=== PATIENT | male | born 1970 | race Two or more races ===

== ENCOUNTER → 2016-07-14 | Outpatient (CLI) | payer MEDICAID ==
[~2016-07-14] MED LIST: LIDOCAINE 1% 30 ML SDV ONE; NA BICARBONATE 50 MEQ/50 ML VIAL ONE
--- NOTE | 2016-07-14 16:44 | US ---
Ultrasound chest Indication: Evaluate for therapeutic thoracentesis. Technique: Grayscale imaging of the left and right chest. Findings: There is a large left thoracentesis. The fluid appears mildly complicated, but there are n o significant septations. The right pleural space is clear. Impression: Large left pleural effusion. After much discussion, the patient refused thoracentesis, s econdary to lack of sedation as he had a recent bad experience at an outside hospital. Patient is ref erred for Pleurx chest tube placement in 2 days. The above findings were discussed with Dr. Jose Enrique Del Toro, who agrees with the above plan.
== END ==
LOC: FIMAGING 13:37
PROVIDERS: ATTEND Internal Medicine Hematology & Oncology
DX: J90 Pleural effusion, not elsewhere classified (principal)

== ENCOUNTER → 2016-08-13 | Outpatient (CLI) | payer MEDICAID ==
--- NOTE | 2016-08-13 10:42 | DX ---
Chest, PA and Lateral History: Increasing cough, malignant pleural effusion, left chest tube, cholangiocarcinoma. Comparison: June 14, 2016 Findings: Bilateral miliary nodules of metastatic disease are increasing in size and likely number. T here is a left basilar chest tube with adjacent pleural fluid that is decreased since the prior exam. More focal consolidation at the lateral left base could represent evidence of a dominant lung or con fluent nodules, or atelectasis. There is possibly superimposed infiltrate at the left base. There is no right pleural effusion. No lytic or sclerotic bone lesions are identified. There are no compressio n abnormalities. Impression: Progressive metastatic disease with possible superimposed left lower lobe infiltrate. Results called to Dr. Abran Trinh, as requested.
== END ==
LOC: FIMAGING 09:57
PROVIDERS: ATTEND Family Medicine
DX: C22.1 Intrahepatic bile duct carcinoma (principal); C78.00 Secondary malignant neoplasm of unspecified lung; R05 Cough; Z97.8 Presence of other specified devices

== ENCOUNTER 2017-02-02 09:51 | Day surgery (SDC) | payer MEDICAID ==
[2017-02-02] MEDS ORDERED: NS 1,000 ML IV SCH (10:30)
[2017-02-02] MEDS ORDERED: fentaNYL 100 MCG/2 ML INJ ONE (11:22)
[2017-02-02] MEDS ORDERED: MIDAZOLAM 2 MG/2 ML VIAL ONE (11:22)
[2017-02-02] MEDS ORDERED: FLUMAZENIL 0.5 MG/5 ML MDV IVP ONE (11:23)
[2017-02-02] MEDS ORDERED: NALOXONE HCL 0.4 MG/ML INJ ONE (11:23)
[2017-02-02] MEDS ORDERED: ONDANSETRON 4 MG/2 ML VIAL IVP PRN (13:12)
[2017-02-02] MEDS ORDERED: oxyCODONE IR 5 MG TAB PO PRN (13:12)
[2017-02-02 13:15] VITALS: RESP 11
[2017-02-02 13:38] VITALS: BP 115/75; O2SAT 99
== END 2017-02-02 13:57 | disposition home or self-care (01) ==
LOC: FIMAGING 09:51
PROVIDERS: ATTEND Radiology Diagnostic Radiology
PROC: BF251ZZ Computerized Tomography (CT Scan) of Liver using Low Osmolar Contrast (ICD-10-PCS; principal; 2017-02-02 12:55)
PROC: 0FB03ZX Excision of Liver, Percutaneous Approach, Diagnostic (ICD-10-PCS; principal; 2017-02-02 12:55)
DX: C22.1 Intrahepatic bile duct carcinoma (principal); C78.02 Secondary malignant neoplasm of left lung; Z87.891 Personal history of nicotine dependence
CPT/HCPCS: J2250; J2310; J3010

== ENCOUNTER → 2017-02-19 | Outpatient (CLI) | payer MEDICAID | LOC: FIMAGING 14:51 | PROVIDERS: ATTEND Nurse Practitioner | DX: C78.02 Secondary malignant neoplasm of left lung (principal); C22.1 Intrahepatic bile duct carcinoma ==

== ENCOUNTER 2017-04-02 10:19 | Inpatient (IN) | payer MEDICAID ==
[2017-04-02] MEDS ORDERED: ACETAMINOPHEN 325 MG TAB PO PRN (12:33)
[2017-04-02] MEDS ORDERED: ONDANSETRON DISINTEGRATING 4 MG TAB PO PRN (12:33)
[2017-04-02] MEDS ORDERED: ONDANSETRON 4 MG/2 ML VIAL IVP PRN (12:33)
[2017-04-02] MEDS ORDERED: ALBUTEROL 60 PUFFS/8 GM MDI IH PRN (12:44)
[2017-04-02] MEDS ORDERED: clonazePAM 1 MG TAB PO PRN (12:44)
[2017-04-02] MEDS: NS 1,000 ML IV SCH ×2 (13:00→19:48)
[2017-04-02] MEDS: HYDROmorphONE/DILAUDID 1 MG/ML INJ IVP PRN ×2 (13:01→14:21)
[2017-04-02] MEDS ORDERED: NALOXONE HCL 0.4 MG/ML INJ IVP PRN (14:22)
[2017-04-02] MEDS ORDERED: HYDROmorphONE/DILAUDID 1 MG/ML INJ IVP ONE (14:22)
[2017-04-02] MEDS: HYDROmorphONE/DILAUDID 6 MG/30 ML PCA IV PRN (15:22)
[2017-04-02] MEDS: PREGABALIN 50 MG CAP PO SCH (15:32)
--- NOTE | 2017-04-02 16:43 | ASMTCMCOM ---
CM Note CM Note Notes: Pt admitted with metastatic cholangiocarcinoma. Pt stated on admission that he wants to use the with Dignity Act to end his life. DOUGH RAISER, Nelly from palliative team is working on this request. Nelly and this C/M met with pt and in room. Pt stated he is suffering greatly. , Nanci in tears stating that she has felt so alone and it has been hard for her and 9 y/o dtr to watch pt's suffering. Pt and have no family in area. Pt has a brother in [place] and he may be able to come stay them for a short while. Discussed the possibility of DC to hospice either at home or care center once symptoms under control. They would like to wait and see how pt resonds. C/M will continue to follow. Date Signed: 04/02/2017 04:42 PM Electronically Signed By:Kira Garcia LCSW
[2017-04-02] MEDS ORDERED: fentaNYL 12 MCG PATCH TD SCH (16:45)
--- NOTE | 2017-04-02 16:52 | PDPCPN ---
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 Jose Alejandro is not wanting any life prolonging measures and wants the with dignity act to alleviate his suffering. palliative care consulted for complex medical decision making. Met with Jose Alejandro and his Nanci at the bedside this afternoon. Jose Alejandro described he has no quality of life and is suffering. he wants his suffering to be done and to with dignity. his Nanci was tearful and described Jose Alejandro's decline and need for her to care for her almost 26/01 due to weakness. She is in support of his choice to focus only on comfort. We spent a long time in discussion about hospice care, comfort, and the right to . Jose Alejandro would prefer to be at home but does not want to be suffering at home and is hoping for some symptom management. 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 Social work involved and helping. - Ativan PRn Advanced Care Planning: Is patient decisional?: Yes Code Status: DNR POA: unsure who is MDPOA. Plan: Aggressive symptom management. Hospice consult here for continued outpatient care. Working on with dignity act with his PCP Dr Ureña who is willing to help with the process. Subjective: i'm in so much pain Objective: Social History: . Has a 8 year old daughter. Brother is coming from [place] soon. 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 Vital Signs Temp Pulse Resp BP Pulse Ox 36.4 C 68 16 114/72 96 04/02/17 15:51 04/02/17 15:51 04/02/17 15:51 04/02/17 15:51 04/02/17 15:51 Physical Exam - Physical Exam General Appearance: alert, mild distress Respiratory: No respiratory distress, No accessory muscle use Skin: normal color, warm/dry Extremities: No pedal edema Neuro/Psych: alert, oriented x 3 ICD10 Worksheet Patient Problems: Problems Problem Status Onset Palliative care encounter Acute - ICD10 Problem Qualifiers (1) Palliative care encounter
--- NOTE | 2017-04-02 18:14 | PDGENHP ---
History and Physical History and Physical: HISTORY AND PHYSICAL CC: Pain nausea vomiting and cough HISTORY: This patient who has a history of cholangiocarcinoma diagnosed earlier this year has had trials of chemotherapy which have not led to any control is his tumor and he has had recently diagnosed progression of disease. He and his tell me that for some time now he has had a very difficult to control cough and that he has enough constant coughing fits productive of very large amounts of thick sputum that is driving him crazy. He is somewhat short of breath with this as well. More recently he started to develop diffuse pains including headaches chest back abdomen and limb pains though nothing really focal but sounds like a bone pain that might readily be treatable with radiation. These pains have become quite severe. He is taking MS Contin 15 twice daily as well as some breakthrough short-acting narcotic and not getting any good control despite the fact that he feels these medicines are making him feel woozy and nauseous and sleepy. In addition he does have frequent nausea and vomiting that has become big problem just recently and is not able to keep food or fluid down very well and feels dehydrated. He and his tell me that they have been talking for some time about his possible options. He at this time does not want any more chemotherapy, and does not want any more significant diagnostic therapy nor would he consent to any therapeutic procedures including palliative procedures to try and reduce pain. He wants to trying be made as comfortable as he can. He also would like to have referral to a physician assisted program where he can explore the possibilities of being given a dose medication to and his misery. He says that he does not feel like he has any dignity with all of these bothersome symptoms and he is bothered by how uncomfortable his family is watching him go through this. The patient visited with Dr. Del Toro his oncologist today in clinic and was referred to the hospital for symptom control. Notably in addition to his cancer related symptoms the patient does have some chronic bilateral sciatica after 2 spine surgeries and the pain of this has become more severe recently despite ongoing use of Lyrica and his narcotic analgesics. He had at 1 point been on a higher dose of Lyrica but did not tolerate that very well. He is at 100 mg daily right now ROS: A comprehensive 10 system review revealed no fevers but he is losing weight. He has not had any bleeding or bruising. No other significant specific symptoms. PAST MEDICAL HISTORY: Cholangiocarcinoma, stage IV, progressive despite chemotherapy and without any really good prospects for other chemotherapy Ongoing pain of malignancy Chronic bilateral sciatica with previous history of 2 spine surgeries, lumbar FAMILY MEDICAL HISTORY: No particularly related family history to his above problems SOCIAL HISTORY: lives at home with his MEDICATIONS: The patients list has been reconciled by our clinical pharmacist in the EMR. I have reviewed the list and ordered appropriate medicines. Note that in addition to the prescription medicines listed by the pharmacist the patient has been taking some cannabis oil at home to trying treat his pain. He said initially that cannabis will was managing his pain somewhat but in the past month he does not find it at all helpful PHYSICAL EXAMINATION: Vital Signs: Stable without fever Examination: General: alert, oriented, good mentation, looks uncomfortable and is fairly anxious He has very frequent and pronounced coughing spells productive of large volumes of thick but clear sputum during our visit Skin: warm, dry, some jaundice, no rash HEENT: normal Neck: no mass or jvd Resps: relaxed Lungs: Very rhonchorous breath sounds Heart: regular, no murmur Abdomen: soft, nondistended, nontender, +BS, no mass Upper Extremities: normal Lower Extremities: no edema, warm No Bleeding or bruising Neurologic: normal speech/language, normal preparator, no focal weakness IV site: looks normal LABORATORY DATA: Notably his bilirubin which was 1.6 on March 13 is now at 19. Alkaline phosphatase is greater than 300 with AST of 90 both numbers approximately stable rest of chemistries unremarkable Normal white cell count and red cell counts ASSESSMENT: -uncontrolled pain, nausea, vomiting, and coughing spells with dyspnea due to metastatic cholangiocarcinoma -uncontrolled sciatica pain which is chronic for him after previous lumbar spine surgeries -the patient has a set great sense of a loss of dignity in his current situation , certainly feels very hopeless about his situation at this time, and is looking for a way to get out of the situation. He certainly would like any kind of help we can give him with symptom control at this time. He is also very interested though in the physician therapist's assistant dying option and is requesting that we make a referral for this -the patient does not have any interest at all at this time in any further diagnostic testing, procedures, or chemotherapy, and is requesting palliative care. I have reviewed the above with Dr. Jose Enrique Del Toro his oncologist by telephone today as well. At this time I do see room for improvement in the pain medication regimen that he has as well as the nausea treatment and treatments for his cough. Hopefully these will be successful with minimal side effects as we go along and this may make things a lot easier for him. In terms of the question of referral for physician assisted , at this moment the patient and his are resolution that is the direction they want to go. Dr. Del Toro is recommending strongly that we try and hold off on this, I believe largely because of the possibility that we may be able to relieve him of some of his symptoms with better treatment which med changes mind, but also for concerned that it may interfere with the palliative process. At this point there is no in this community who is performing physician therapist's assistant in unaware of and of all the physicians in [place] that I know of who do it there not taking referral from outside their own system including the [place] program. Best we do not have any but I can refer him to straight away at this time. Either way if he does end up with a referral it will take some time for that referral to occur and then the process that begins wants a referral is made includes a very long and thorough assessment such that there be plenty of time to begin palliative issues, so I am not currently worried about this issue interfering with the palliative process. Nonetheless it may be that we can control his symptoms and he will feel less desperate to move on with this physician assisted dining scenario. PLANS: -at this point will replace the MS Contin with fentanyl patch so that I know he is not vomiting his tablets up and will replace is breakthrough pain medicine with IV medicine that we can titrate up to the needed dosing and adjust for side effects. We can then work toward hopefully an oral regimen if we can get his vomiting controlled but he can always use fentanyl patch and Roxanol. -will use IV antiemetics at this time and again titrate to hopefully quickly get control is vomiting -cough suppressants and mucolytic 6 and if we need to we can use inhaled Mucomyst or other therapies for his productive cough -as his bilirubin has gone from 1.6-19 in a very short period of time, is very possible that he has some biliary obstruction. Theoretically this could be treated by stenting or other measure. At this time the patient has no interest in any such diagnostic testing or procedures as would be required, but would perhaps reassess once we get his symptoms better controlled and see if he is potentially more interested after that. This would all be of course very palliative but we want to go with the patient's wishes on them. -I have requested consultation with Pam Ng of the palliative care team and reviewed the case with her and she has seen the patient and will continue to follow -regarding the patient's request for referral to a physician at assisted , I am not aware of any physician group and I can actually make a referral to at this time but I will at least continue to look to see what options are available so that we can further advise the patient as we go along, see above >90 mins at bedside and care coordination I have reviewed the patient's case in detail with Dr. Jose Enrique Del Toro I have reviewed the patient's past medical records as part of this assessment, including
[2017-04-02] MEDS ORDERED: PROMETHAZINE HCL 25 MG/ML INJ IVP PRN (18:35)
[2017-04-02] MEDS: guaiFENesin 600 MG TAB.ER PO SCH (19:11)
[2017-04-02] MEDS ORDERED: morphINE SR 15 MG TAB PO SCH (21:00)
--- NOTE | 2017-04-02 21:38 | GCON ---
[f rep st] CONSULTATION REASON FOR CONSULTATION: Metastatic cholangiocarcinoma in need of palliative care. The patient is a very pleasant 47-year-old male with a diagnosis of metastatic cholangiocarcinoma diagnosed in June of 2016. At that time, he had a 3 cm mass in his liver as well as innumerable pulmonary nodules and a left pleural effusion. Biopsy of the lung nodule showed a poorly differentiated adenocarcinoma with immuno markers most consistent with an upper GI malignancy felt to be most consistent with a cholangiocarcinoma. He had a PleurX catheter placed at [facility]. He started treatment with cisplatin and gemcitabine, and the cisplatin was eventually changed to carboplatin due to improved tolerability. He initially had a partial response and then his scan after 5 cycles showed stable disease. He completed 7 cycles of [place] gemcitabine and restaging studies in January showed slight progression. The patient was felt to have progressive disease and was started on nivolumab approximately 2 weeks ago. He has been struggling with ongoing pain and low energy. He was seen in the office today by Dr. Del Toro and reported that he no longer wanted any therapy. He is interested in with Dignity and is requesting help in facilitating that. Today in the office, he was found to be newly jaundiced with a bilirubin of 19. Bilirubin was 1.6 on March 13. PAST MEDICAL HISTORY: Unremarkable. SOCIAL HISTORY: The patient lives in [place]. He is . REVIEW OF SYSTEMS: 10-point Review of Systems is unremarkable other than noted in HPI. PHYSICAL EXAM: GENERAL: He is very ill appearing, jaundiced and uncomfortable. He is currently receiving a Dilaudid TECHNICAL SUPPORT INTERNSHIP. VITAL SIGNS: Blood pressure 113/70, O2 saturation 96%. Respires 18. He is afebrile. HEENT: Pupils are equal. Sclerae are anicteric. ABDOMEN: Soft. Tender to palpation in the right upper quadrant. Normal bowel sounds. HEART: Regular rate. LUNGS : Clear. EXTREMITIES: No edema. LABORATORY DATA: White blood cell count 5.8, hematocrit 41, platelets 286. Sodium 133, creatinine 0.8, total bilirubin 19.3, AST 91, alk phos 337. IMPRESSION: This is a very unfortunate 47-year-old male with metastatic cholangiocarcinoma with lung and pleural metastases. The patient has progressed after a course of [place] and gemcitabine therapy. More recently, he was tried on an experimental treatment with nivolumab but is now requesting no further therapy. He has new marked hyperbilirubinemia. This could be due to some type of biliary obstruction versus progressive tumor. At this point, the patient is not interested in additional diagnostic tests and is asking for arrangements to be made for with Dignity. He states he has been suffering and he wants to with dignity. He no longer wants to suffer and does understand that the disease is terminal. He is more comfortable currently on the Dilaudid patient-controlled analgesia. Hospice consultation is being arranged. Reportedly his primary care physician, Dr. Ureña, has been helping to facilitate the process for him. We will continue to follow along with you. /[id number]/MODL MTDD
[2017-04-02] MEDS: LORazepam 2 MG/ML INJ IVP PRN (23:02)
[2017-04-03] MEDS: ZOLPIDEM TARTRATE 5 MG TAB PO PRN ×2 (01:25→20:45)
[2017-04-03] MEDS: NS 1,000 ML IV SCH ×4 (01:25→22:43)
[2017-04-03] MEDS: ENOXAPARIN 40 MG/0.4 ML SYR SC SCH (08:39)
[2017-04-03] MEDS: MULTIVITAMINS 1 EACH TAB PO SCH (08:39)
[2017-04-03] MEDS: oxyCODONE IR 5 MG TAB PO PRN (08:39)
[2017-04-03] MEDS: guaiFENesin 600 MG TAB.ER PO SCH ×2 (08:39→20:16)
[2017-04-03] MEDS: HYDROmorphONE/DILAUDID 6 MG/30 ML PCA IV PRN (11:31)
[2017-04-03] MEDS: PREGABALIN 50 MG CAP PO SCH (14:18)
[2017-04-03] MEDS: BENZONATATE 100 MG CAP PO PRN (14:19)
--- NOTE | 2017-04-03 15:52 | ASMTCMCOM ---
CM Note CM Note Notes: Met with pt this morning and he would like to meet with [facility] to discuss admission. Faxed referral to [facility]. They can meet with pt at 10:00 AM in room tomorrow. Pt's at work so pt will ask her tonight and make sure that time os okay with her. Pt is much more comfortable today. C/M to follow. Date Signed: 04/03/2017 03:51 PM Electronically Signed By:Kira Garcia LCSW
--- NOTE | 2017-04-03 16:06 | PDPCPN ---
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 Jose Alejandro is not wanting any life prolonging measures and wants the with dignity act to alleviate his suffering. palliative care consulted for complex medical decision making. Jose Alejandro stated he was feeling better today. His pain was much improved and the coughing was a little better. He has been mostly resting and sleeping. He also states he was able to eat some applesauce this morning without any nausea or vomiting which is a big improvement. We spoke with him about getting a hospice consult here with his present to continue to discuss how to support them both once he is ready to leave the hospital. He also inquired again about the with dignity act and we told him it is still in process but we understand this is still a wish he would like to pursue. 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 Social work involved and helping. - Ativan PRn Advanced Care Planning: Is patient decisional?: Yes Code Status: DNR POA: unsure who is MDPOA. Plan: Aggressive symptom management. Hospice consult tomorrow. Working on with dignity act with his PCP Dr Ureña who is willing to help with the process. Subjective: my pain is better. Objective: Vital Signs Temp Pulse Resp BP Pulse Ox 36.6 C 90 16 96/60 L 91 L 04/03/17 14:00 04/03/17 14:00 04/03/17 14:00 04/03/17 14:00 04/03/17 14:00 04/02/17 04/03/17 04/04/17 05:59 05:59 05:59 Intake Total 2331.4 Output Total 501 1175 Balance 1830.4 -1175 Physical Exam - Physical Exam General Appearance: alert, no apparent distress Respiratory: No respiratory distress, No accessory muscle use Skin: normal color, warm/dry Extremities: No pedal edema Neuro/Psych: alert, oriented x 3 ICD10 Worksheet Patient Problems: Problems Problem Status Onset Palliative care encounter Acute - ICD10 Problem Qualifiers (1) Palliative care encounter
--- NOTE | 2017-04-03 16:57 | HOSPPROG ---
Hospitalist Progress Note Assessment/Plan: DIAGNOSES: -uncontrolled pain, nausea, vomiting, and coughing spells with dyspnea due to metastatic cholangiocarcinoma -uncontrolled sciatica pain which is chronic for him after previous lumbar spine surgeries -the patient has a set great sense of a loss of dignity in his current situation , certainly feels very hopeless about his situation at this time, and is looking for a way to get out of the situation. He certainly would like any kind of help we can give him with symptom control at this time. He is also very interested though in the physician assistant chief engineer dying option and is requesting that we make a referral for this -the patient does not have any interest at all at this time in any further diagnostic testing, procedures, or chemotherapy, and is requesting palliative care. 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 His nausea and is improved but he still having significant nausea and has trouble eating. The cough is somewhat improved as well but still having cough. He confirms today that he still has no interest in further diagnostic or therapeutic procedures, and that he still does not feel that he has or could have a control and dignity that he wants over his life situation. He is very much wanting to continue working on titrating his symptom control here, and still wanting to move forward 1 possible with referral to a with dignity Clinic. OBJECTIVE Vitals reviewed: Stable without fever Exam: alert oriented skin warm dry color ok resps not labored lungs clear BSs heart regular abd soft nondistended nontender, bowel sounds present limbs warm, no edema iv site ok Objective: Vital Signs Temp Pulse Resp BP Pulse Ox 36.6 C 90 16 96/60 L 91 L 04/03/17 14:04/03/17 14:04/03/17 14:04/03/17 14:04/03/17 14:04/02/17 04/03/17 04/04/17 06:59 06:59 06:59 Intake Total 2331.4 Output Total 501 1175 Balance 1830.4 -1175 ICD10 Worksheet Patient Problems: Problems Problem Status Onset Palliative care encounter Acute
--- NOTE | 2017-04-03 18:14 | SOAPPROG ---
SOAP Progress Note Assessment/Plan: Assessment: Brief note. Pt sleeping comfortably - I did not wake him, but reviewed with Dr. Barnett, RN, and palliative care team. Symptom control improving. Hospice consultation scheduled for tomorrow. He would prefer being at home and is still investigating with Dignity option. 04/03/17 18:13 Objective: Vital Signs Temp Pulse Resp BP Pulse Ox 36.7 C 89 16 129/87 H 90 L 04/03/17 18:04 04/03/17 18:04 04/03/17 18:04 04/03/17 18:04 04/03/17 18:04 04/02/17 04/03/17 04/04/17 05:59 05:59 05:59 Intake Total 2331.4 Output Total 501 1175 Balance 1830.4 -1175 ICD10 Worksheet Patient Problems: Problems Problem Status Onset Palliative care encounter Acute
[2017-04-03] MEDS: guaiFENesin/CODEINE PHOS 10 ML UDCUP PO PRN (20:14)
[2017-04-04] MEDS: guaiFENesin/CODEINE PHOS 10 ML UDCUP PO PRN ×3 (04:03→20:25)
[2017-04-04] MEDS: NS 1,000 ML IV SCH ×3 (04:05→19:00)
[2017-04-04] MEDS: HYDROmorphONE/DILAUDID 6 MG/30 ML PCA IV PRN ×2 (05:10→13:26)
[2017-04-04] MEDS: ENOXAPARIN 40 MG/0.4 ML SYR SC SCH (09:03)
[2017-04-04] MEDS: MULTIVITAMINS 1 EACH TAB PO SCH (09:03)
[2017-04-04] MEDS: guaiFENesin 600 MG TAB.ER PO SCH ×2 (09:04→21:02)
--- NOTE | 2017-04-04 11:26 | HOSPPROG ---
Hospitalist Progress Note Assessment/Plan: DIAGNOSES: -uncontrolled pain, nausea, vomiting, and coughing spells with dyspnea due to metastatic cholangiocarcinoma -uncontrolled sciatica pain which is chronic for him after previous lumbar spine surgeries -the patient has a set great sense of a loss of dignity in his current situation , certainly feels very hopeless about his situation at this time, and is looking for a way to get out of the situation. He certainly would like any kind of help we can give him with symptom control at this time. He is also very interested though in the physician household personal assistant dying option and is requesting that we make a referral for this -the patient does not have any interest at all at this time in any further diagnostic testing, procedures, or chemotherapy, and is requesting palliative care. PLANS: continue titration / management of his symptoms Will increase dose of fentanyl patch today Will add scopolamine patch today Will increase his dose of Lyrica to 150 mg daily for his chronic sciatica He is hoping to trying go home with hospice care in 2 days on Thursday, at which time we will continue fentanyl patches and it sounds like the plan worked out with hospice will be to use narcotic by NAVY MATERIAL INSPECTOR pump as he goes home. SUBJECTIVE: Today he and his family met with hospice care from [facility] and they had a very good needing it sounds like he is very interested in working with them and will probably be taken home care with them when he goes home from this admission. Today again his pain is slightly better but still constantly present and requiring ongoing use of NAVY MATERIAL INSPECTOR. His nausea and is improved but he still having significant nausea and has trouble eating. The cough is somewhat improved as well but still having cough. He confirms today that he still has no interest in further diagnostic or therapeutic procedures, and that he still does not feel that he has or could have a control and dignity that he wants over his life situation. He is very much wanting to continue working on titrating his symptom control here, looking to go forward with hospice care possibly home in a couple of days, and still wanting to move forward 1 possible with referral to a [facility]. OBJECTIVE Vitals reviewed: Stable without fever Exam: alert oriented skin warm dry color ok resps not labored lungs clear BSs heart regular abd soft nondistended nontender, bowel sounds present limbs warm, no edema iv site ok Objective: Vital Signs Temp Pulse Resp BP Pulse Ox 36.6 C 79 18 125/82 H 93 04/04/17 10:00 04/04/17 10:00 04/04/17 10:00 04/04/17 10:00 04/04/17 10:00 04/03/17 04/04/17 04/05/17 06:59 06:59 06:59 Intake Total 2331.4 4388.4 Output Total 501 3725 475 Balance 1830.4 663.4 -475 ICD10 Worksheet Patient Problems: Problems Problem Status Onset Palliative care encounter Acute
[2017-04-04] MEDS ORDERED: SCOPOLAMINE HYDROBROMIDE 1 MG/3 DAYS PATCH TD SCH (11:30)
[2017-04-04] MEDS: fentaNYL 25 MCG PATCH TD SCH (11:47)
[2017-04-04] MEDS: PREGABALIN 50 MG CAP PO SCH (13:14)
--- NOTE | 2017-04-04 13:38 | SOAPPROG ---
SOAP Progress Note Assessment/Plan: E&M for cholangiocarcinoma * Cholangiocarcinoma: incurable disease and likely to take patient's life within 6 months. Patient has good understanding of his situation. I don't know local physician providing medical aid in dying. We can look into physicians outside area to see if they would be interested in seeing him but no guarantees. No further recs. Subjective: Primary complaint is pruritus. Going home with hospice on Thursday. Asking about medical aid in dying. Objective: Vital Signs Temp Pulse Resp BP Pulse Ox 36.7 C 81 14 123/79 H 95 04/04/17 11:39 04/04/17 11:39 04/04/17 11:39 04/04/17 11:39 04/04/17 11:39 04/03/17 04/04/17 04/05/17 05:59 05:59 05:59 Intake Total 2331.4 4388.4 Output Total 501 3725 875 Balance 1830.4 663.4 -875 Physical Exam - Physical Exam General Appearance: no apparent distress EENT: scleral icterus (R), scleral icterus (L) Abdomen: soft Skin: jaundice ICD10 Worksheet Patient Problems: Problems Problem Status Onset Palliative care encounter Acute
--- NOTE | 2017-04-04 14:19 | ASMTCMCOM ---
CM Note CM Note Notes: Jessie from [facility] hospice met with pt, his , his brother and sister today. Plan is for pt to DC Thursday in time to meet Jessie at his home at 3:00. Equipment will be delivered on Thursday between 8 and 12. Pt's brother and sister plan to stay for two weeks. Pt's asked for private duty list so she can hire help when family leaves. Jessie asked that transport be set up with [facility] on Thursday for 2:00 PM pickup. Their ph# is [phone]. Pt will nbeed a prescription for roxanol and attivan to be filled before DC home. C/M will follow, Date Signed: 04/04/2017 02:18 PM Electronically Signed By:Kira Garcia LCSW
[2017-04-05] MEDS: ZOLPIDEM TARTRATE 5 MG TAB PO PRN ×2 (00:07→22:43)
[2017-04-05] MEDS: HYDROmorphONE/DILAUDID 6 MG/30 ML PCA IV PRN (00:29)
[2017-04-05] MEDS: BENZONATATE 100 MG CAP PO PRN (01:02)
[2017-04-05] MEDS: NS 1,000 ML IV SCH ×3 (01:36→18:48)
[2017-04-05] MEDS: guaiFENesin/CODEINE PHOS 10 ML UDCUP PO PRN ×4 (04:27→22:41)
[2017-04-05] MEDS: ENOXAPARIN 40 MG/0.4 ML SYR SC SCH (08:23)
[2017-04-05] MEDS: guaiFENesin 600 MG TAB.ER PO SCH ×2 (08:23→21:28)
[2017-04-05] MEDS: MULTIVITAMINS 1 EACH TAB PO SCH (08:23)
[2017-04-05] MEDS: hydrOXYzine HCL 25 MG TAB PO SCH ×3 (11:44→23:19)
[2017-04-05] MEDS ORDERED: IOPAMIDOL (ISOVUE-300) 100 ML BTL ONE (14:22)
--- NOTE | 2017-04-05 14:49 | SOAPPROG ---
SOAP Progress Note Assessment/Plan: E&M for cholangiocarcinoma * Cholangiocarcinoma: incurable disease and likely to take patient's life within 6 months. Patient has good understanding of his situation and desires hospice. * Obstructive jaundice and pruritus: reasonable to see if a stent can provide some relief. MRCP today and will be evaluated by GI. If unable to do stent, I talked to him about placing an external drain. I explained the external drain is easier to place and less likely to obstruct down the road. Subjective: After speaking to his cousin? who is an oncologist, he is interested in a palliative stent. Pain mostly in abd and sciatica. Objective: Vital Signs Temp Pulse Resp BP Pulse Ox 36.5 C 74 14 112/71 94 04/05/17 13:43 04/05/17 13:43 04/05/17 13:43 04/05/17 13:43 04/05/17 13:43 04/04/17 04/05/17 04/06/17 05:59 05:59 05:59 Intake Total 4388.4 3240 Output Total 3725 1600 775 Balance 663.4 4092 -775 Physical Exam - Physical Exam General Appearance: no apparent distress EENT: scleral icterus (R), scleral icterus (L) Abdomen: soft, distended Skin: jaundice ICD10 Worksheet Patient Problems: Problems Problem Status Onset Palliative care encounter Acute
[2017-04-05] MEDS: PREGABALIN 50 MG CAP PO SCH (14:54)
[2017-04-05] MEDS: BENZONATATE 100 MG CAP PO SCH ×2 (14:54→21:28)
[2017-04-05] MEDS: clonazePAM 1 MG TAB PO SCH ×2 (15:00→21:28)
--- NOTE | 2017-04-05 16:03 | HOSPPROG ---
Hospitalist Progress Note Assessment/Plan: 47-year-old male with obstructive jaundice, pruritus, and cholangiocarcinoma and an incurable stage. He presents with obstructive jaundice. Patient is new to me today. -abdominal pain nausea and vomiting along with coughing spells and dyspnea. Abdominal pain is currently well controlled with a SHIFT SUPERVISOR FILM PROCESSING pump and we are controlling the coughing spells with Tessalon Perles along with Robitussin A-C. -jaundice: Secondary to obstructive lesion of the liver. I discussed this with the patient is his and his cousin an oncologist from [facility]. Though the cholangiocarcinoma is likely incurable per Oncology a note attempt to drain the biliary system is reasonable. -itching secondary to jaundice Atarax has been prescribed. Plan: MRCP of the abdomen to assess for possible stent placement. Gastroenterology has been consulted nerve discussed the case with Dr. monika peters on. He will be seen by Dr. Moncho Cerda to tomorrow. Case was discussed with both GI and Oncology. CT scans from our [facility] [place] will reviewed with Radiology. I reviewed all this information with the family his cousin the oncologist from [facility] and the patient. All questions were answered. Subjective: Reports he is feeling improved with the SHIFT SUPERVISOR FILM PROCESSING pump and on medication for itching. Objective: Vital Signs Temp Pulse Resp BP Pulse Ox 36.6 C 89 15 107/66 92 04/05/17 15:23 04/05/17 15:23 04/05/17 15:23 04/05/17 15:23 04/05/17 15:23 04/04/17 04/05/17 04/06/17 05:59 05:59 05:59 Intake Total 4388.4 3240 Output Total 3725 1600 775 Balance 663.4 6190 -775 - Time Spent With Patient Time Spent with Patient: greater than 35 minutes Time Spent with Patient: Greater than 35 minutes spent on this patients care, greater than 50% of time spent counseling, educating, and coordinating care regarding the above mentioned plan. - Pending Discharge Pending Discharge Within 24 Hours: No Pending Discharge Within 48 Hours: No - Physical Exam Constitutional: no apparent distress, chronically ill appearing Eyes: PERRL, icteric sclera Ears, Nose, Mouth, Throat: moist mucous membranes, hearing normal Cardiovascular: regular rate and rhythym, no murmur, rub, or gallop Respiratory: no respiratory distress, no rales or rhonchi, clear to auscultation Gastrointestinal: normoactive bowel sounds, tenderness (Slight tenderness in the right upper quadrant is noted no rebound or guarding) Genitourinary: no bladder fullness Skin: warm Musculoskeletal: full muscle strength Neurologic: AAOx3, CN II-XII Intact Psychiatric: interacting appropriately ICD10 Worksheet Patient Problems: Problems Problem Status Onset Palliative care encounter Acute
[2017-04-05] MEDS ORDERED: GADOBUTROL 10 ML VIAL IVP ONE (17:54)
[2017-04-05] MEDS: SCOPOLAMINE HYDROBROMIDE 1 MG/3 DAYS PATCH TD SCH (18:42)
[2017-04-05] MEDS: ALBUTEROL 200 PUFFS/18 GM MDI IH PRN ×2 (18:43→20:20)
[2017-04-06] MEDS: hydrOXYzine HCL 25 MG TAB PO SCH ×4 (00:07→18:00)
[2017-04-06] MEDS: oxyCODONE IR 5 MG TAB PO PRN (01:13)
[2017-04-06] MEDS: NS 1,000 ML IV SCH ×3 (02:23→18:01)
[2017-04-06] MEDS: guaiFENesin/CODEINE PHOS 10 ML UDCUP PO PRN ×3 (05:14→19:22)
[2017-04-06 05:44] LABS: % IMMATURE GRANULYOCYTES 0.9 % (0.0-1.1); ABSOLUTE IMMATURE GRANULOCYTES 0.05 10^3/uL (0.00-0.10); ADD DIFF? NO; ADD MORPH? NO; ADD SCAN? NO; ATYPICAL LYMPHOCYTE FLAG 0 (0-99); FRAGMENT RBC FLAG 20 (0-99); HEMATOCRIT 34.1 % (40.0-51.0); HEMOGLOBIN 11.7 g/dL (13.7-17.5); LEFT SHIFT FLG 0 (0-99); LIPEMIA HEMOLYSIS FLAG 90 (0-99); MEAN CELL HEMOGLOBIN 31.8 pg (27.9-34.1); MEAN CELL HEMOGLOBIN CONCENTR. 34.3 g/dL (32.4-36.7); MEAN CELL VOLUME 92.7 fL (81.5-99.8); MEAN PLATELET VOLUME 10.9 fL (8.7-11.7); PLATELET CLUMPS FLAG 0 (0-99); PLATELET COUNT 186 10^3/uL (150-400); RED BLOOD CELL COUNT 3.68 10^6/uL (4.40-6.38); RED CELL DISTRIBUTION WIDTH 17.4 % (11.5-15.2)
[2017-04-06 06:00] LABS: INR 1.19 (0.83-1.16); PROTIME(PATIENT) 15.1 SEC (12.0-15.0)
[2017-04-06 06:26] LABS: ALANINE AMINOTRANSFERASE 69 IU/L (21-72); ALBUMIN 2.9 g/dL (3.5-5.0); ALKALINE PHOSPHATASE 279 IU/L (38-126); ANION GAP 8 mEq/L (8-16); ASPARTATE AMINOTRANSFERASE 88 IU/L (17-59); BILIRUBIN,TOTAL 20.8 mg/dL (0.1-1.4); CALCIUM 8.8 mg/dL (8.5-10.4); CARBON DIOXIDE 24 mEq/l (22-31); CHLORIDE 101 mEq/L (97-110); CREATININE 0.7 mg/dL (0.7-1.3); GLOMERULAR FILTRATION RATE > 60; GLUCOSE 90 mg/dL (70-100); POTASSIUM 3.7 mEq/L (3.5-5.2); SODIUM 133 mEq/L (134-144)
[2017-04-06 06:34] LABS: BILIRUBIN-CONJUGATED 18.3 mg/dL (0.0-0.5); BILIRUBIN-UNCONJUGATED 2.5 mg/dL (0.0-1.1)
[2017-04-06 06:49] LABS: SPECIMEN ICTERUS 18
[2017-04-06] MEDS: BENZONATATE 100 MG CAP PO SCH ×3 (08:21→21:45)
[2017-04-06] MEDS: ENOXAPARIN 40 MG/0.4 ML SYR SC SCH (08:22)
[2017-04-06] MEDS: clonazePAM 1 MG TAB PO SCH ×3 (08:22→21:45)
[2017-04-06] MEDS: guaiFENesin 600 MG TAB.ER PO SCH ×2 (08:22→20:36)
[2017-04-06] MEDS: MULTIVITAMINS 1 EACH TAB PO SCH (08:23)
[2017-04-06] MEDS: HYDROmorphONE/DILAUDID 6 MG/30 ML PCA IV PRN (09:29)
[2017-04-06] MEDS ORDERED: IPRATROPIUM/ALBUTEROL 3 ML DEYVIAL IH ONE (11:08)
--- NOTE | 2017-04-06 12:13 | SOAPPROG ---
SOAP Progress Note Assessment/Plan: Assessment: 1.) Advanced Cholangiocarcinoma with large mass at junction of R/L Hepatic lobes with dilation of R Hepatic duct and atrophy of L Hepatic duct. Most recent syxsemtic Tx has been with Nivolumab. Possible Endoscopic decompression of Hepatic duct obstruction if feasible, later today. Supportive care @ home with home Hospice support planned. Plan: See above discussion. 04/06/17 12:10 Subjective: Sitting up in chair at the bedside with four family members visiting. Reports adequate sx. control. Objective: VSS, afebrile, as noted here. Alert, conversant, and deeply jaundiced. in NAD, PE avoided due to nature of patient engaged with family visit. Vital Signs Temp Pulse Resp BP Pulse Ox 36.4 C 91 13 108/66 91 L 04/06/17 11:55 04/06/17 11:55 04/06/17 11:55 04/06/17 11:55 04/06/17 11:55 Laboratory Results 04/06/17 05:37 04/06/17 05:37 04/05/17 04/06/17 04/07/17 05:59 05:59 05:59 Intake Total 3240 3040 Output Total 1600 1650 950 Balance 1640 1390 -950 PT 15.1 SEC (12.0-15.0) H 04/06/17 05:37 INR 1.19 (0.83-1.16) H 04/06/17 05:37 ICD10 Worksheet Patient Problems: Problems Problem Status Onset Palliative care encounter Acute
[2017-04-06] MEDS: IPRATROPIUM/ALBUTEROL 3 ML DEYVIAL IH SCH ×3 (12:32→20:26)
[2017-04-06] MEDS ORDERED: GLUCAGON,HUMAN RECOMBINANT 1 MG VIAL ONE (12:47)
[2017-04-06] MEDS ORDERED: IOTHALAMATE MEG (CONRAY) 50 ML VIAL IV ONE (12:48)
[2017-04-06] MEDS ORDERED: MIDAZOLAM 2 MG/2 ML VIAL IVP ONE (13:31)
--- NOTE | 2017-04-06 13:31 | PDANEPAE ---
ANE Past Medical History - Cardiovascular History Hx Hypertension: No Hx Arrhythmias: No Hx Chest Pain: No Hx Coronary Artery / Peripheral Vascular Disease: No Hx CHF / Valvular Disease: No Hx Palpitations: No - Pulmonary History Hx COPD: No Hx Asthma/Reactive Airway Disease: No Hx Recent Upper Respiratory Infection: No Hx Oxygen in Use at Home: Yes O2 in Use at Home (L/minute): 1.5 Hx Sleep Apnea: Yes Sleep Apnea Screening Result - Last Documented: Positive Pulmonary History Comment: occasionally 2L - Neurologic History Hx Cerebrovascular Accident: No Hx Seizures: No Hx Dementia: No - Endocrine History Hx Diabetes: No Hypothyroid: No Hyperthyroid: No Obesity: no - Renal History Hx Renal Disorders: No - Liver History Hx Hepatic Disorders: No - Neurological & Psychiatric Hx Hx Neurological and Psychiatric Disorders: No - Cancer History Hx Cancer: Yes Cancer History Comment: cholangioma, Liver - Congenital Disorder History Hx Congenital Disorders: No - GI History GERD: mild Hx Gastrointestinal Disorders: Yes Gastrointestinal History Comment: Nausea - Other Health History Other Health History: none - Chronic Pain History Chronic Pain: Yes (Neuropathy) - Surgical History Prior Surgeries: back surgery 8 years ago ANE Review of Systems Review of Systems: ANE Patient History - Allergies Allergies/Adverse Reactions: No Known Allergies Allergy (Unverified 08/04/12 12:49) - Home Medications Home Medications: Albuterol [Proventil Inhaler HFA (*)] 1 - 2 puffs IH DAILY PRN 04/02/17 [Last Taken Unknown] Multivitamins [Multivitamin (*)] 1 each PO DAILY 04/02/17 [Last Taken Unknown] Pregabalin [Lyrica 50mg (*)] 100 mg PO DAILY@14 04/02/17 [Last Taken 04/01/17] clonazePAM [klonoPIN (*)] 1 mg PO TID PRN 04/02/17 [Last Taken 04/02/17] morphINE SR [Ms Contin/Oramorph 15 mg (*)] 15 mg PO BID 04/02/17 [Last Taken Unknown] oxyCODONE IR [Oxycodone Ir (*)] 5 mg PO Q4-6PRN PRN 04/02/17 [Last Taken Unknown ] - NPO status NPO Since - Liquids (Date): 04/06/17 NPO Since - Liquids (Time): 10:00 NPO Since - Solids (Date): 04/05/17 NPO Since - Solids (Time): 00:00 - Smoking Hx Smoking Status: Former smoker - Family Anes Hx Family Hx Anesthesia Complications: no ANE Labs/Vital Signs - Labs Result Diagrams: 04/06/17 05:37 04/06/17 05:37 - Vital Signs Blood Pressure: 97/69 Heart Rate: 97 Respiratory Rate: 18 O2 Sat (%): 85 Height: 193.04 cm Weight: 87.997 kg ANE Physical Exam - Airway Neck exam: FROM Mallampati Score: Class 2 Mouth exam: normal dental/mouth exam - Pulmonary Pulmonary: reduced air movement - Cardiovascular Cardiovascular: regular rate and rhythym - ASA Status ASA Status: IV
--- NOTE | 2017-04-06 13:39 | SOAPPROG ---
BRENNA Progress Note Assessment/Plan: Assessment: Plan: 04/06/17 08:36 See dictated consult for details. Will proceed with ERCP. R/b/a discussed with patient. Objective: Vital Signs Temp Pulse Resp BP Pulse Ox 36.5 C 97 18 97/69 L 85 L 04/06/17 13:07 04/06/17 13:31 04/06/17 13:31 04/06/17 13:31 04/06/17 13:31 Laboratory Results 04/06/17 05:37 04/06/17 05:37 04/05/17 04/06/17 04/07/17 05:59 05:59 05:59 Intake Total 3240 3040 Output Total 1600 1650 950 Balance 1640 1390 -950 PT 15.1 SEC (12.0-15.0) H 04/06/17 05:37 INR 1.19 (0.83-1.16) H 04/06/17 05:37 ICD10 Worksheet Patient Problems: Problems Problem Status Onset Palliative care encounter Acute
[2017-04-06] MEDS ORDERED: fentaNYL 100 MCG/2 ML INJ ONE ×3 (13:43→14:04)
[2017-04-06] MEDS ORDERED: LR 1,000 ML IV ONE (13:44)
[2017-04-06] MEDS ORDERED: PROPOFOL/EMULSION 500 MG/50 ML BOTTLE IV ONE (13:46)
[2017-04-06] MEDS ORDERED: INDOMETHACIN 50 MG SUPP PR ONE (13:49)
[2017-04-06] MEDS ORDERED: levOFLOXACIN 500 MG/DEXTROSE/100 ML BAG IV ONE (13:50)
--- NOTE | 2017-04-06 14:58 | GIREPORT ---
[facility] - Endoscopy Department Patient Name: Bucky Diamond Procedure Date: 04/06/2017 12:27 PM Patient Type: Outpatient Attending MD/ ER Physician: Rodolfo Lau MD Procedure: ERCP Indications: Abnormal abdominal CT, Jaundice, Elevated liver enzymes Patient Profile: 47 year old male with a history of metastatic cholangiocarcinoma presen ts for evaluatoin of biliary obstruction. Providers: Rodolfo Lau MD Medicines: General Anesthesia, Levaquin 500 mg IV Complications: No immediate complications. Description of Procedure: After obtaining informed consent, the scope was passed under direct vision. Throughout the proce dure, the patient's blood pressure, pulse, and oxygen saturations were monitored continuously. The Duodenalscope was introduced through the mouth, and advanced to the duodenum and used to inject contrast into the bile duct. The ERCP was accomplished without difficulty. The patient tolerated the procedure well. The ERCP was technically difficult and complex due to a partially obstructing ma ss. Findings: The glass sagger film was normal. The esophagus was successfully intubated under direct vision. The sco pe was advanced to a normal major papilla in the descending duodenum without detailed examination o f the pharynx, larynx and associated structures, and upper GI tract. The upper GI tract was grossly no rmal. A wire was passed into the biliary tree. The short-nosed traction sphincterotome was passed over the guidewire and the bile duct was then deeply cannulated. Contrast was injected. I personally interpreted the bile duct images. Ductal flow of contrast was adequate. Image quality was adequa te. Contrast extended to the main bile duct. Contrast extended to the bifurcation. Minimal contrast extended to the hepatic ducts. The common hepatic duct was completely obstructed by what appeare d to be a mass. A 10 mm biliary sphincterotomy was made with a traction (standard) sphincterotome usi ng ERBE electrocautery. The sphincterotomy oozed blood. The biliary tree was swept with a 12 mm bal loon starting at the bifurcation. Sludge was swept from the duct. One 7 Fr by 9 cm transpapillary temporary stent was placed into the suspected right hepatic duct? It was hard to discern the loc ation due to the large mass and distortion of the biliary tree. Bile flowed through the stent. The marjorie nt was in good position. One 7 Fr by 9 cm transpapillary temporary stent was placed into the left hepatic duct. Bile flowed through the stent. The stent was in good position. Estimated Blood Loss: Estimated blood loss was minimal. Post Op Diagnosis: - A biliary tract obstruction secondary to what appeared to be a mass was found in the common he patic duct. - A biliary sphincterotomy was performed. - The biliary tree was swept and sludge was found. - Two stents were placed into the biliary tree. Recommendation: - Return patient to [facility] for [facility] care. - Clear liquid diet. - Repeat ERCP in 8 weeks. - Antibiotics x 10 days - Thank you for allowing me to participate in the care of your patient. Attending Participation: I personally performed the entire procedure. Rodolfo Lau MD Rodolfo Lau MD 04/06/2017 2:57:38 PM Number of Addenda: 0 Note Initiated On: 04/06/2017 12:27 PM Total Procedure Duration Time 0 hours 34 minutes 18 seconds [email or web address]
[2017-04-06] MEDS ORDERED: ALBUTEROL 3 ML DEYVIAL ONE ×3 (15:03→15:31)
[2017-04-06] MEDS ORDERED: HYDROmorphONE/DILAUDID 1 MG/ML INJ ONE (15:31)
[2017-04-06] MEDS: HYDROmorphONE/DILAUDID 1 MG/ML INJ IVP PRN (15:35)
--- NOTE | 2017-04-06 15:47 | GCON ---
[f rep st] CONSULTATION DATE OF CONSULTATION: 04/06/2017 REFERRING PHYSICIAN: Yuan Morales Jr., MD REASON FOR CONSULTATION: Biliary obstruction. CHIEF COMPLAINT: Abdominal pain. HISTORY OF PRESENT ILLNESS: The patient is a 47-year-old male with a history of metastatic cholangiocarcinoma who presents with jaundice as well as abdominal discomfort. The patient was diagnosed with cholangiocarcinoma in June 2016, after he had biopsies of a lung nodule. He has had multiple treatment regimens with a partial response. The patient has had multiple systemic symptoms including shortness of breath as well as a recent cough. He also complains of a diffuse pain he was having in his chest area and well as abdominal area. This pain can be sharp to dull. The pain can last hours and is worse with eating with no relieving factors except narcotics. The patient has noticed that he has become more jaundiced over the last several weeks. His urine has been darker in color. He has had significant weakness as well as weight loss. He did have a MRI which revealed a large obstructing mass in the common hepatic duct area. I am being asked by Dr. Morales to evaluate the patient in consultation regarding biliary obstruction. PAST MEDICAL HISTORY: Metastatic cholangiocarcinoma, bilateral sciatica. PAST SURGICAL HISTORY: Two spinal surgeries. SOCIAL HISTORY: . Denies history of alcohol or tobacco use. FAMILY HISTORY: No history of liver cancer. ALLERGIES: NKDA. MEDICATIONS: See EMR. Cannibas oil. REVIEW OF SYSTEMS: A 14-point comprehensive review of systems was asked. Pertinent positives and negatives as per HPI. PHYSICAL EXAM: VITAL SIGNS: Heart rate 73, respiration 12, temperature 36.4, blood pressure 100/66. GENERAL: Awake, alert, oriented x3. No distress. HEENT: Scleral icterus. Moist mucosa. NECK: No JVD. CARDIOVASCULAR: Regular rate and rhythm. Positive S1, S2. No murmurs or gallops appreciated. LUNGS: Clear to auscultation bilaterally without wheezes, rales or rhonchi. ABDOMEN: Soft, nontender, nondistended. Positive bowel sounds. No guarding. No rebound. EXTREMITIES: No clubbing, cyanosis, or edema. NEUROLOGIC: 2 through 12 grossly intact. PSYCH: Normal affect. MUSCULOSKELETAL: No joint effusions. LABORATORY DATA: Blood work: WBC 5.48, hemoglobin 11.7, hematocrit 34.1, platelets 186. INR 1.19. Total bilirubin 20.8. AST 88, ALT 69, alkaline phosphatase 279. MRI: Positive Kl[place] tumor with dilation of the right and left sides. ASSESSMENT/PLAN: 1. Biliary obstruction- secondary to metastatic cholangiocarcinoma, with significant obstruction at the bifurcation area. At this time, recommend to proceed with endoscopic retrograde cholangiopancreatography with possible stenting. The risks, benefits, and alternatives of the procedure were discussed in great detail with the patient. The risks of infection, bleeding, perforation, sedation, and pancreatitis were discussed. All questions answered , and informed consent was obtained. Thank you very much for this consultation. /[id number]/MODL MTDD
--- NOTE | 2017-04-06 16:49 | HOSPPROG ---
Hospitalist Progress Note Assessment/Plan: 47-year-old male with obstructive jaundice, pruritus, and cholangiocarcinoma and an incurable stage. He presents with obstructive jaundice. -abdominal pain nausea and vomiting along with coughing spells and dyspnea. Abdominal pain is currently well controlled with a PROPERTY MANAGEMENT ACCOUNTANT pump and we are controlling the coughing spells with Tessalon Perles along with Robitussin A-C. -jaundice: Secondary to obstructive lesion of the liver. Patient underwent ERCP and 2 stent placed 1 in the right hepatic duct and 1 in the left hepatic duct. There was good follow-up bowel flow noted by Dr. Lau. Patient tolerated the procedure well. -itching secondary to jaundice Atarax has been prescribed. Plan: Case was discussed with both GI and Oncology. MRCP was reviewed with Radiology and by myself. I reviewed all this information with the family, patient and his . All questions were answered. Time: 55 minutes Subjective: Reports he is drowsy and having persistent cough. No fever chest pain or abdominal pain. Objective: Vital Signs Temp Pulse Resp BP Pulse Ox 36.4 C 114 H 16 104/80 93 04/06/17 16:16 04/06/17 16:00 04/06/17 16:00 04/06/17 16:00 04/06/17 16:00 Laboratory Results 04/06/17 05:37 04/06/17 05:37 04/05/17 04/06/17 04/07/17 05:59 05:59 05:59 Intake Total 3240 3040 1550 Output Total 1600 1650 950 Balance 1640 1390 600 PT 15.1 SEC (12.0-15.0) H 04/06/17 05:37 INR 1.19 (0.83-1.16) H 04/06/17 05:37 - Time Spent With Patient Time Spent with Patient: greater than 35 minutes Time Spent with Patient: Greater than 35 minutes spent on this patients care, greater than 50% of time spent counseling, educating, and coordinating care regarding the above mentioned plan. - Pending Discharge Pending Discharge Within 24 Hours: No Pending Discharge Within 48 Hours: No - Physical Exam Constitutional: chronically ill appearing Eyes: PERRL, icteric sclera Ears, Nose, Mouth, Throat: moist mucous membranes, hearing normal Cardiovascular: regular rate and rhythym, no murmur, rub, or gallop Respiratory: no respiratory distress, reduced air movement, inspiratory crackles , bronchial breath sounds, rhonchi Gastrointestinal: normoactive bowel sounds, soft, non-tender abdomen, no palpable masses, distension Genitourinary: no bladder fullness Skin: warm Musculoskeletal: generalized weakness Neurologic: AAOx3 Psychiatric: interacting appropriately ICD10 Worksheet Patient Problems: Problems Problem Status Onset Palliative care encounter Acute
--- NOTE | 2017-04-06 17:36 | ASMTCMCOM ---
CM Note CM Note Notes: Met with patient, sister, brother and friend to answer questions regarding Hospice vs Palliative. Explained that [facility] hospice will be here at 10:00am on Thursday04/07/2017. Patient and family want to go home with hospice but want to made sure they could go to the Care Center if the need becomes apparent. They had questions about how frequently hospice woudl be available to them. They were encouraged to ask these questions of the Hospice nurse on Thursday. Case Management will continue to follow. Date Signed: 04/06/2017 05:35 PM Electronically Signed By:FÁTIMA Patiño
[2017-04-06] MEDS: PREGABALIN 50 MG CAP PO SCH (18:01)
[2017-04-06] MEDS: ZOLPIDEM TARTRATE 5 MG TAB PO PRN (21:45)
[2017-04-07] MEDS: hydrOXYzine HCL 25 MG TAB PO SCH ×5 (01:18→23:11)
[2017-04-07] MEDS: NS 1,000 ML IV SCH ×3 (01:35→20:35)
[2017-04-07] MEDS: guaiFENesin/CODEINE PHOS 10 ML UDCUP PO PRN ×5 (02:37→23:16)
[2017-04-07] MEDS: HYDROmorphONE/DILAUDID 6 MG/30 ML PCA IV PRN ×2 (04:23→21:55)
[2017-04-07 04:58] LABS: % IMMATURE GRANULYOCYTES 1.3 % (0.0-1.1); ABSOLUTE IMMATURE GRANULOCYTES 0.07 10^3/uL (0.00-0.10); ADD DIFF? NO; ADD MORPH? NO; ADD SCAN? NO; ATYPICAL LYMPHOCYTE FLAG 10 (0-99); FRAGMENT RBC FLAG 20 (0-99); HEMATOCRIT 37.5 % (40.0-51.0); HEMOGLOBIN 12.6 g/dL (13.7-17.5); LEFT SHIFT FLG 10 (0-99); LIPEMIA HEMOLYSIS FLAG 80 (0-99); MEAN CELL HEMOGLOBIN 31.9 pg (27.9-34.1); MEAN CELL HEMOGLOBIN CONCENTR. 33.6 g/dL (32.4-36.7); MEAN CELL VOLUME 94.9 fL (81.5-99.8); MEAN PLATELET VOLUME 10.1 fL (8.7-11.7); PLATELET CLUMPS FLAG 10 (0-99); PLATELET COUNT 170 10^3/uL (150-400); RED BLOOD CELL COUNT 3.95 10^6/uL (4.40-6.38); RED CELL DISTRIBUTION WIDTH 17.4 % (11.5-15.2)
[2017-04-07 05:31] LABS: ALANINE AMINOTRANSFERASE 65 IU/L (21-72); ALBUMIN 3.1 g/dL (3.5-5.0); ALKALINE PHOSPHATASE 272 IU/L (38-126); ANION GAP 10 mEq/L (8-16); ASPARTATE AMINOTRANSFERASE 89 IU/L (17-59); BILIRUBIN,TOTAL 20.5 mg/dL (0.1-1.4); CALCIUM 8.9 mg/dL (8.5-10.4); CARBON DIOXIDE 22 mEq/l (22-31); CHLORIDE 106 mEq/L (97-110); CREATININE 0.6 mg/dL (0.7-1.3); GLOMERULAR FILTRATION RATE > 60; GLUCOSE 79 mg/dL (70-100); POTASSIUM 3.9 mEq/L (3.5-5.2); SODIUM 138 mEq/L (134-144); TOTAL PROTEIN 6.2 g/dL (6.3-8.2)
[2017-04-07] MEDS: IPRATROPIUM/ALBUTEROL 3 ML DEYVIAL IH SCH ×4 (05:57→21:39)
[2017-04-07 06:01] LABS: SPECIMEN ICTERUS 19
[2017-04-07 06:10] LABS: BILIRUBIN-CONJUGATED 17.9 mg/dL (0.0-0.5); BILIRUBIN-UNCONJUGATED 2.6 mg/dL (0.0-1.1)
[2017-04-07] MEDS: SCOPOLAMINE HYDROBROMIDE 1 MG/3 DAYS PATCH TD SCH (08:32)
[2017-04-07] MEDS: ENOXAPARIN 40 MG/0.4 ML SYR SC SCH (08:32)
[2017-04-07] MEDS: BENZONATATE 100 MG CAP PO SCH ×3 (08:32→21:53)
[2017-04-07] MEDS: MULTIVITAMINS 1 EACH TAB PO SCH (08:32)
[2017-04-07] MEDS: clonazePAM 1 MG TAB PO SCH ×3 (08:33→21:53)
[2017-04-07] MEDS: guaiFENesin 600 MG TAB.ER PO SCH ×2 (08:33→21:53)
--- NOTE | 2017-04-07 09:18 | HOSPPROG ---
Hospitalist Progress Note Assessment/Plan: 47-year-old male with obstructive jaundice, pruritus, and cholangiocarcinoma and an incurable stage. Yesterday hip stents placed in the left and right hepatic ducts. Laboratories this morning show very slight improvement in his bilirubin. Patient complained of a cough most of last night. Cough is nonproductive. Abdominal pain persists and is controlled with a ASSISTANT PROGRAM MANAGER pump. Patient is quite drowsy but is alert and conversant he continues to have persistent cough. -abdominal pain nausea and vomiting along with coughing spells and dyspnea. Abdominal pain is currently well controlled with a ASSISTANT PROGRAM MANAGER pump. Coughing is not controlled on Tessalon Perles and Robitussin AC. Will add Advair and IV steroids. -jaundice: Secondary to obstructive lesion of the liver. Patient underwent ERCP and 2 stent placed 1 in the right hepatic duct and 1 in the left hepatic duct. There was good follow-up bowel flow noted by Dr. Lau. Bilirubin is only slightly improved this a.m.. -itching secondary to jaundice Atarax has been prescribed. 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 Will discuss with Oncology today regarding planned follow-up. Plan: Case was discussed with both GI and Oncology. Case discussed with Dr. Lau. Patient can have a regular diet today. Will discuss with Oncology for plan followup. Possible discharge in 1 day. Time: 55 minutes Subjective: Reports his cough was persistent all last night despite bronchodilators and codeine. Abdominal pain is reasonably well controlled with his ASSISTANT PROGRAM MANAGER pump. Objective: Vital Signs Temp Pulse Resp BP Pulse Ox 36.6 C 88 18 109/66 93 04/07/17 08:30 04/07/17 08:30 04/07/17 08:30 04/07/17 08:30 04/07/17 08:30 Laboratory Results 04/07/17 04:47 04/07/17 04:47 04/06/17 04/07/17 04/08/17 05:59 05:59 05:59 Intake Total 3040 3616 Output Total 1650 950 Balance 1390 2666 PT 15.1 SEC (12.0-15.0) H 04/06/17 05:37 INR 1.19 (0.83-1.16) H 04/06/17 05:37 - Time Spent With Patient Time Spent with Patient: greater than 35 minutes Time Spent with Patient: Greater than 35 minutes spent on this patients care, greater than 50% of time spent counseling, educating, and coordinating care regarding the above mentioned plan. - Pending Discharge Pending Discharge Within 24 Hours: Yes Pending Discharge Date: 04/08/17 Pending Discharge Time: 11:00 - Physical Exam Constitutional: chronically ill appearing, other (Appears in pain and uncomfortable) Eyes: icteric sclera Ears, Nose, Mouth, Throat: moist mucous membranes, hearing normal Cardiovascular: regular rate and rhythym, no murmur, rub, or gallop Respiratory: no respiratory distress, reduced air movement, bronchial breath sounds, rhonchi Gastrointestinal: normoactive bowel sounds, soft, non-tender abdomen, tenderness (Tenderness is noted in the epigastrium and right upper quadrant without voluntary or involuntary guarding or rebound) Genitourinary: no bladder fullness Skin: warm Musculoskeletal: generalized weakness Neurologic: AAOx3, CN II-XII Intact Psychiatric: interacting appropriately ICD10 Worksheet Patient Problems: Problems Problem Status Onset Palliative care encounter Acute
[2017-04-07] MEDS: methylPREDNISolone SOD SUCC 40 MG/ML VIAL IVP SCH ×3 (10:22→21:53)
[2017-04-07] MEDS: FLUTICASONE/SALMETER 250/50MCG DISKUS IH SCH ×2 (11:16→21:39)
[2017-04-07] MEDS: fentaNYL 25 MCG PATCH TD SCH (11:20)
[2017-04-07] MEDS: ALBUTEROL 200 PUFFS/18 GM MDI IH PRN (13:47)
[2017-04-07] MEDS: PREGABALIN 50 MG CAP PO SCH (13:57)
--- NOTE | 2017-04-07 15:23 | SOAPPROG ---
SOAP Progress Note Assessment/Plan: Assessment: 1. Cholangiocarcinoma, metastatic to lung 2. Obstructive jaundice due to primary tumor, s/p stent I spoke with the patient, his and sister, the welder assembler, hospitalist (Dr. Morales), and Dr. Smita Ureña, who has been identified as the patient's PCP. He understands that he is dying from his cancer and that there is little hope of any therapy making much of a difference. Nevertheless, he would like to continue with nivolumab (immunotherapy). He does not want to go to the hospice care center because he wants to at home, but even with home hospice he is not likely to have the level of support that he needs. He is very adamant about pursuing physician assisted suicide under [place] law, though the hospice organizations are not participating in this, and Dr. Ureña has only met the patient once, prior to his cancer diagnosis, and is not yet certified to go through the process. I likewise am not certified. Plan: - likely discharge to home with maximal available support. case management will have to weigh in on whether this is feasible. - pt can f/u in clinic with me next week. - will look into options for the patient for physician assisted suicide, per his request. he is adamant about refusing hospice care at this juncture - pt agrees to be DNR 60 min spent w/ pt and in coordination of care. 04/07/17 15:18 Objective: Vital Signs Temp Pulse Resp BP Pulse Ox 36.5 C 96 18 113/59 L 91 L 04/07/17 14:25 04/07/17 14:25 04/07/17 14:25 04/07/17 14:25 04/07/17 14:25 Laboratory Results 04/07/17 04:47 04/07/17 04:47 04/06/17 04/07/17 04/08/17 05:59 05:59 05:59 Intake Total 3040 3616 Output Total 1650 950 870 Balance 1390 2666 -870 PT 15.1 SEC (12.0-15.0) H 04/06/17 05:37 INR 1.19 (0.83-1.16) H 04/06/17 05:37 ICD10 Worksheet Patient Problems: Problems Problem Status Onset Palliative care encounter Acute
--- NOTE | 2017-04-07 16:04 | SOAPPROG ---
BRENNA Progress Note Assessment/Plan: Assessment: Plan: 04/06/17 08:36 See dictated consult for details. Will proceed with ERCP. R/b/a discussed with patient. 04/07/17 16:01 A/P 1. Biliary obstruction- cholangiocarcinoma. S/p ERCP with stent. No apparent complications from procedure. Toleratinf diet. Lfts sight downtrend. Will follow LFTs GI will sign off. Subjective: cc: Follow up biliary obstruction. Abdominal pain improved. Objective: Vital Signs Temp Pulse Resp BP Pulse Ox 36.5 C 96 18 113/59 L 91 L 04/07/17 14:25 04/07/17 14:25 04/07/17 14:25 04/07/17 14:25 04/07/17 14:25 Laboratory Results 04/07/17 04:47 04/07/17 04:47 04/06/17 04/07/17 04/08/17 05:59 05:59 05:59 Intake Total 3040 3616 Output Total 1650 950 870 Balance 1390 2666 -870 PT 15.1 SEC (12.0-15.0) H 04/06/17 05:37 INR 1.19 (0.83-1.16) H 04/06/17 05:37 Physical Exam - Physical Exam General Appearance: alert, no apparent distress EENT: scleral icterus (R), scleral icterus (L) Respiratory: lungs clear Cardiac/Chest: regular rate, rhythm, No bradycardia, No tachycardia, No diastolic murmur, No systolic murmur Abdomen: normal bowel sounds, non-tender, soft, No hepatomegaly, No splenomegaly Skin: normal color Neuro/Psych: normal mood/affect, oriented x 3, No abnormal diagrammer II-XII ICD10 Worksheet Patient Problems: Problems Problem Status Onset Palliative care encounter Acute
--- NOTE | 2017-04-07 17:59 | PDPCPN ---
Palliative Care Progress Note Assessment/Plan: HPI: Bucky "Julio Diamond is a 47year old with PMH metastatic cholangiocarcinoma with mets to liver and lung admitted to the hospital from [facility] for uncontrolled symptoms of pain, coughing, SOB, weakness, and nausea/vomiting inability to keep PO down. Jose Alejandro is not wanting any life prolonging measures and wants the with dignity act to alleviate his suffering. palliative care consulted for complex medical decision making. Al seen this AM with family at the bedside. Sleeping and appeared comfortable, did not disturb .Spoke with sister and brother about possible discharge possibilities. Discussed private duty caregivers vs family caregivers. His brother is coming back into town next week and is hoping to be able to care for him with his Nanci. They are awaiting [facility] to come and visit for more information. Assessment: Physical: - Pain: generalized body pain - on fentanyl patch along with dilaudid RESTAURANT SERVER and oxy IR PRN - steroids may be helpful in reducing inflammatory pain and can consider dex 2mg BID - on lyrica for prior back pain - Dyspnea/cough: - opiates as above will help - oxygen as needed - hycodan - started on steroids and nebs - Nausea/vomiting: - zofran PRN - compazine PRN - constipation - at risk with opiates - dulcolax supp daily PRN Emotional/psychological: Feels he is suffering. Social work involved and helping. - Ativan PRn Advanced Care Planning: Is patient decisional?: Yes Code Status: DNR POA: unsure who is MDPOA. Plan: Discharge to [facility] for continued symptom management Subjective: sleeping Objective: Vital Signs Temp Pulse Resp BP Pulse Ox 36.6 C 87 18 115/71 89 L 04/07/17 16:55 04/07/17 16:55 04/07/17 16:55 04/07/17 16:55 04/07/17 16:55 Laboratory Results 04/07/17 04:47 04/07/17 04:47 04/06/17 04/07/17 04/08/17 05:59 05:59 05:59 Intake Total 3040 3616 Output Total 1650 950 870 Balance 1390 2666 -870 PT 15.1 SEC (12.0-15.0) H 04/06/17 05:37 INR 1.19 (0.83-1.16) H 04/06/17 05:37 Physical Exam - Physical Exam General Appearance: no apparent distress, other (sleeping) Respiratory: No respiratory distress, No accessory muscle use Skin: warm/dry, jaundice Extremities: No pedal edema ICD10 Worksheet Patient Problems: Problems Problem Status Onset Palliative care encounter Acute - ICD10 Problem Qualifiers (1) Palliative care encounter
--- NOTE | 2017-04-07 18:25 | ASMTCMCOM ---
CM Note CM Note Notes: C/M had met with family and patient last evening and they had made decision that patient would go to [facility] hospice care center on discharge. [facility] was contacted and Patricia Rn came to see patient and arrange for transport to the care center. In meeting with pt and family Patricia said that patient said he was willing to go to the care center but wanted to make sure he wouldnt there. We discussed the plan was for symptom management and then the plan would be to return home. Family made it clear that there would be no one who could be at home to care for patient if he went home at this time. Both brother and sister plan to fly back to their jobs and homes this week. They said they would be unable to afford private duty to come into the home to assist the patient. Dr. Del Toro saw patient who told Dr. Del Toro he wanted to go home. When meeting with patient again , patient and family said they were willing to go to the Care center but wanted to go home to with hospice.He did raise the issue of possibly continuing treatment and wondered if he could continue treatment and have hospice. He was informed that if he decided to start treatment then hospice would not be able to continue services. This was confirmed with hospice. Pt was informed that it is his decision to make. C/M notified [facility] that at present patient wants to go to the care center Weds. morning. [facility] plans to check in with the Case management in the morning. is in agreement with the plan. Case management will continue to follow. Date Signed: 04/07/2017 06:25 PM Electronically Signed By:FÁTIMA Patiño
[2017-04-07] MEDS: ZOLPIDEM TARTRATE 5 MG TAB PO PRN (20:43)
[2017-04-07] MEDS: LORazepam 0.5 MG TAB PO PRN (20:43)
[2017-04-08] MEDS: NS 1,000 ML IV SCH ×3 (01:40→12:38)
[2017-04-08] MEDS: guaiFENesin/CODEINE PHOS 10 ML UDCUP PO PRN ×3 (04:01→13:59)
[2017-04-08] MEDS: LORazepam 0.5 MG TAB PO PRN (04:09)
[2017-04-08] MEDS: methylPREDNISolone SOD SUCC 40 MG/ML VIAL IVP SCH (04:09)
[2017-04-08] MEDS: hydrOXYzine HCL 25 MG TAB PO SCH ×2 (04:09→12:38)
[2017-04-08 05:33] LABS: ALANINE AMINOTRANSFERASE 58 IU/L (21-72); ALBUMIN 2.6 g/dL (3.5-5.0); ALKALINE PHOSPHATASE 241 IU/L (38-126); ANION GAP 8 mEq/L (8-16); ASPARTATE AMINOTRANSFERASE 69 IU/L (17-59); BILIRUBIN,TOTAL 17.2 mg/dL (0.1-1.4); CALCIUM 8.8 mg/dL (8.5-10.4); CARBON DIOXIDE 25 mEq/l (22-31); CHLORIDE 102 mEq/L (97-110); CREATININE 0.7 mg/dL (0.7-1.3); GLOMERULAR FILTRATION RATE > 60; GLUCOSE 147 mg/dL (70-100); POTASSIUM 3.7 mEq/L (3.5-5.2); SODIUM 135 mEq/L (134-144); TOTAL PROTEIN 5.5 g/dL (6.3-8.2)
[2017-04-08 05:34] LABS: ABSOLUTE IMMATURE GRANULOCYTES 0.06 10^3/uL (0.00-0.10); ADD DIFF? NO; ADD MORPH? NO; ADD SCAN? NO; ATYPICAL LYMPHOCYTE FLAG 0 (0-99); FRAGMENT RBC FLAG 20 (0-99); HEMATOCRIT 32.8 % (40.0-51.0); HEMOGLOBIN 11.2 g/dL (13.7-17.5); LEFT SHIFT FLG 20 (0-99); LIPEMIA HEMOLYSIS FLAG 90 (0-99); MEAN CELL HEMOGLOBIN 31.6 pg (27.9-34.1); MEAN CELL HEMOGLOBIN CONCENTR. 34.1 g/dL (32.4-36.7); MEAN CELL VOLUME 92.7 fL (81.5-99.8); MEAN PLATELET VOLUME 10.7 fL (8.7-11.7); PLATELET CLUMPS FLAG 0 (0-99); PLATELET COUNT 175 10^3/uL (150-400); RED BLOOD CELL COUNT 3.54 10^6/uL (4.40-6.38)
[2017-04-08 05:57] LABS: SPECIMEN ICTERUS 13
[2017-04-08 06:13] LABS: BILIRUBIN-UNCONJUGATED 2.2 mg/dL (0.0-1.1)
[2017-04-08] MEDS: IPRATROPIUM/ALBUTEROL 3 ML DEYVIAL IH SCH ×3 (07:57→15:38)
[2017-04-08] MEDS: clonazePAM 1 MG TAB PO SCH (09:21)
[2017-04-08] MEDS: MULTIVITAMINS 1 EACH TAB PO SCH (09:21)
[2017-04-08] MEDS: guaiFENesin 600 MG TAB.ER PO SCH (09:22)
[2017-04-08] MEDS: BENZONATATE 100 MG CAP PO SCH (09:22)
[2017-04-08] MEDS: ENOXAPARIN 40 MG/0.4 ML SYR SC SCH (09:24)
[2017-04-08 09:55] VITALS: RESP 16
[2017-04-08] MEDS ORDERED: DEXAMETHASONE 4 MG TAB PO SCH (11:45)
[2017-04-08 12:07] VITALS: BP 102/67; PULSE 85; TEMP 97.7; O2SAT 90
[2017-04-08] MEDS: PREGABALIN 50 MG CAP PO SCH (12:38)
[2017-04-08] MEDS: LORazepam 2 MG/ML INJ IVP PRN (13:59)
--- NOTE | 2017-04-08 14:52 | PDIAF ---
- Diagnosis Code Status: Do Not Resuscitate - Medication Management Discharge Medications: Medications to Continue on Transfer Albuterol [Proventil Inhaler HFA (*)] 1 - 2 puffs IH DAILY PRN 04/02/17 [Last Taken Unknown] Multivitamins [Multivitamin (*)] 1 each PO DAILY 04/02/17 [Last Taken Unknown] Pregabalin [Lyrica 50mg (*)] 100 mg PO DAILY@14 04/02/17 [Last Taken 04/01/17] clonazePAM [klonoPIN (*)] 1 mg PO TID PRN 04/02/17 [Last Taken 04/02/17] Acetaminophen [Tylenol 325mg (*)] 650 mg PO Q4HRS PRN #100 tab 04/08/17 [Last Taken Unknown] Benzonatate [Tessalon Pearles] 200 mg PO TID #100 cap 04/08/17 [Last Taken Unknown] Dexamethasone [Decadron 4 MG (*)] 4 mg PO Q6HRS #120 tab 04/08/17 [Last Taken Unknown] Fluticasone/Salmeter 250/50Mcg [Advair 250/50 (*)] 2 puffs IH BIDI #1 disk 04/08 [Last Taken Unknown] Scopolamine Hydrobromide [Scopolamine Patch] 1 patch TD Q72H #10 patch 04/08/17 [Last Taken Unknown] fentaNYL [Duragesic 25 MCG Patch (*)] 50 mcg TD Q72H #10 patch 04/08/17 [Last Taken Unknown] guaiFENesin [Mucinex 600 MG (*)] 1,200 mg PO BID #120 tab.er 04/08/17 [Last Taken Unknown] hydrOXYzine HCL [hydrOXYzine HCL (RX)] 25 mg PO Q6HRS #120 tab 04/08/17 [Last Taken Unknown] morphINE [Roxanol 10 mg/0.5 ml oral soln (*)] 10 mg PO Q2 #4 oz 04/08/17 [Last Taken Unknown] oxyCODONE IR [Oxycodone Ir (*)] 5 - 10 mg PO Q3HRS PRN #120 tab 04/08/17 [Last Taken Unknown] Discharge Medications: Refer to the Discharge Home Medication list for PRN reason. - Orders Services needed: Registered Nurse (Patient is transferring to [facility] ) Diet Recommendation: no restrictions on diet Diet Texture: Regular Texture Diet - Follow Up Care Current Providers and Referrals: Jose Enrique Del Toro MD [Medical Doctor] - follow up in 2 weeks Abran Trinh MD [Primary Care Provider] -
--- NOTE | 2017-04-08 16:32 | ASMTCMCOM ---
CM Note CM Note Notes: Today Maryr spoke with Hermes on the phone several times. Hermes very stressed about her 's situation and how best to care for him. Provided supportive counseling and resource information. Maryr also met with Pt. and his sister at bedside. Pt. is good with plan to d/c to [facility] today. [facility] Minerva came to assist with discharge of Pt. to [facility]. Giacomo updated Minerva on family situation. Suggested to Minerva and Hermes that Hermes get to know renal social worker at [facility] to develop a care plan. Minerva arranged for transport. D/c orders and meds sent via [employer] to [facility]. Pt. d/c'ed to [facility] today. Date Signed: 04/08/2017 04:31 PM Electronically Signed By:Mari Navarro LCSW
--- NOTE | 2017-04-08 19:56 | GDS ---
[f rep st] DISCHARGE SUMMARY NEW AND ACUTE DIAGNOSES: 1. Cholangiocarcinoma, metastatic widely and prominently to the lung. 2. Uncontrolled pain. 3. Coughing, uncontrolled, secondary to tumor invasion of the lung. 4. Prominent pruritus secondary to severe state of jaundice. 5. Do not resuscitate status. CONSULTATIONS: 1. Oncology. 2. Interventional Radiology. 3. Gastroenterology. PROCEDURES: 1. Magnetic resonance imaging of the abdomen on 04/05, showing a large primary hepatic mass at the compliance of the right and left hepatic lobes, marked thickening of the gallbladder wall with pericholecystic and baylee hepatis inflammation, extensive pulmonary metastases at the lung base bilaterally, splenomegaly. 2. Magnetic resonance cholangiopancreatography performed on 04/[address] Rodolfo Lau and he successfully stented the left and right hepatic ducts, noting that the left lobe of the liver was significantly atretic. HOSPITAL COURSE: This is a 47-year-old gentleman who presented because of severe jaundice, pruritus, and uncontrolled pain and coughing. He has a diagnosis of metastatic cholangiocarcinoma diagnosed in June 2016. He then underwent 7 cycles of gambell, gemcitabine, and restaging studies in January 2017 showed slight progression. He was then placed on nivolumab approximately 2 weeks UPPER LINING CEMENTER. He developed very severe jaundice, ongoing pain, low energy, and a significant cough. MR demonstrated very significant disease at the bifurcation of the left and right hepatic ducts. These were successfully cannulated by Dr. Rodolfo Lau and stents were placed in both. At this point, his bilirubin fell nicely, and his itching slightly improved. He had a very significant cough and was placed on a steroid inhaler and IV Solu- Medrol, which was then changed to Decadron 4 mg q.6 hours. His pain was controlled with a INSTRUMENT AND CONTROLS TECHNICIAN pump, along with a fentanyl patch. Consultation was also done with Palliative Care and threw several conversations with his sister, the patient, the gentleman's cousin (who is also an oncologist in [facility]), it was ultimately decided that the best course of treatment was [facility] as an inpatient. DISCHARGE MEDICATIONS: 1. New medications are: Tylenol q.4 hours p.r.n. pain, Tessalon Perles 200 mg t.i.d., Decadron 4 mg q.6 hours, Duragesic patch 50 mcg transdermal q.72 hours, Advair inhaler 250/50 two puffs inhalations b.i.d., Mucinex 1200 mg b.i.d., hydroxyzine 25 mg q.6 hours, Roxanol 10 mg per 0.5 cc, to have 10 mg p.o. q.2 hours p.r.n. pain, Ativan liquid 2 mg/mL, to have 1 mg p.o. q.2 hours p.r.n. anxiety, oxycodone IR 5-10 mg p.o. q.3 hours p.r.n. pain, scopolamine patch, 1 patch q.72 hours. 2. Continued medications are: Klonopin 1 mg p.o. t.i.d., multivitamins 1 daily , Lyrica 100 mg daily, albuterol inhaler 1-2 puffs q.4 hours p.r.n. shortness of breath. 3. Discontinued medications are: Oxycodone IR and morphine SR. PLAN: The gentleman will be transferred to [facility] as an inpatient. His followup will be with his primary care physician, Abran Trinh and Dr. Jose Enrique Del Toro. Please note that Dr. Del Toro feels that there is little opportunity to continue his nivolumab treatment. He cannot say definitively that will not be helpful, yet that is has never been shown to be helpful, and is under study, in the treatment of cholangiocarcinoma. The gentleman is very ill, requires extensive care, and cannot be cared for at home. It is felt at this point, that his cancer is in a terminal staged and untreatable. This information has been conveyed to the family on multiple occasions. He has a cousin who is an oncologist in [place] whose name is Dwayne Dupree, and this phone number is . I have called and spoken with him, as has Dr. Del Toro. The gentleman is being transferred to hospice inpatient care for comfort measures only. He is DNR. Time: 75 minutes > 50 to college and career counselor and coordinate care, and transfer to inpatient [facility] /[id number]/MODL MTDD
--- NOTE | 2017-04-09 09:23 | ASDISCHSUM ---
Discharge Information Plan Status:Hospice-Inpatient Medically Cleared to Leave: Discharge Date:04/08/2017 04:04 PM D/C Disposition: ADT D/C Disposition:Home, Routine, Self-Care Projected Discharge Date:04/08/2017 02:00 PM Transportation at D/C: Discharge Delay Reason: Follow-Up Date:04/08/2017 02:00 PM Discharge Slot: Final Diagnosis: Placement Information Referral Type:*Hospice Referral ID:[id number] Provider Name:[facility] Address 1:[address] [place] Address 2: City:[place] Selection Factors: State:[place] Patient Contact Information Contact Name:ARIEL Relationship: Address:[address] City:[place] Alternate Phone: State/Zip Code:[place] [address] Email: Financial Information Financial Class: Primary Plan Desc:[employer] Primary Plan Number:[id number] Secondary Plan Desc: Secondary Plan Number: Assessment Information [facility] CM Progress Note CM Note CM Note Notes: Pt admitted with metastatic cholangiocarcinoma. Pt stated on admission that he wants to use the with Dignity Act to end his life. DIAL PRINTER, Nelly from palliative team is working on this request. Nelly and this C/M met with pt and in room. Pt stated he is suffering greatly. , Nanci in tears stating that she has felt so alone and it has been hard for her and 9 y/o dtr to watch pt's suffering. Pt and have no family in area. Pt has a brother in [place] and he may be able to come stay them for a short while. Discussed the possibility of DC to hospice either at home or care center once symptoms under control. They would like to wait and see how pt resonds. C/M will continue to follow. Date Signed: 04/02/2017 04:42 PM Electronically Signed By:Kira Garcia LCSW [facility] CM Progress Note CM Note CM Note Notes: Met with pt this morning and he would like to meet with [facility] hospice to discuss admission. Faxed referral to [facility]. They can meet with pt at 10:00 AM in room tomorrow. Pt's at work so pt will ask her tonight and make sure that time os okay with her. Pt is much more comfortable today. C/M to follow. Date Signed: 04/03/2017 03:51 PM Electronically Signed By:Kira Garcia LCSW [facility] CM Progress Note CM Note CM Note Notes: Jessie from [facility] met with pt, his , his brother and sister today. Plan is for pt to DC Thursday in time to meet Jessie at his home at 3:00. Equipment will be delivered on Thursday between 8 and 12. Pt's brother and sister plan to stay for two weeks. Pt's asked for private duty list so she can hire help when family leaves. Jessie asked that transport be set up with [facility] on Thursday for 2:00 PM pickup. Their ph# is [phone]. Pt will nbeed a prescription for roxanol and attivan to be filled before DC home. C/M will follow, Date Signed: 04/04/2017 02:18 PM Electronically Signed By:Kira McCorrison, ASSISTANT IN NURSING [facility] Progress Note CM Note CM Note Notes: Met with patient, sister, brother and friend to answer questions regarding Hospice vs Palliative. Explained that [facility] hospice will be here at 10:00am on Thursday04/07/2017. Patient and family want to go home with hospice but want to made sure they could go to the Care Center if the need becomes apparent. They had questions about how frequently hospice woudl be available to them. They were encouraged to ask these questions of the Hospice nurse on Thursday. Case Management will continue to follow. Date Signed: 04/06/2017 05:35 PM Electronically Signed By:FÁTIMA Patiño [facility] ALFREDA Progress Note ALFREDA [place] CM Note Notes: C/M had met with family and patient last evening and they had made decision that patient would go to [facility] hospice care center on discharge. [facility] was contacted and Patricia Maria came to see patient and arrange for transport to the care center. In meeting with pt and family Patricia said that patient said he was willing to go to the care center but wanted to make sure he wouldnt there. We discussed the plan was for symptom management and then the plan would be to return home. Family made it clear that there would be no one who could be at home to care for patient if he went home at this time. Both brother and sister plan to fly back to their jobs and homes this week. They said they would be unable to afford private duty to come into the home to assist the patient. Dr. Del Toro saw patient who told Dr. Del Toro he wanted to go home. When meeting with patient again , patient and family said they were willing to go to the Care center but wanted to go home to with hospice.He did raise the issue of possibly continuing treatment and wondered if he could continue treatment and have hospice. He was informed that if he decided to start treatment then hospice would not be able to continue services. This was confirmed with hospice. Pt was informed that it is his decision to make. C/M notified [facility] that at present patient wants to go to the care center Weds. morning. [facility] plans to check in with the Case management in the morning. is in agreement with the plan. Case management will continue to follow. Date Signed: 04/07/2017 06:25 PM Electronically Signed By:FÁTIMA Patiño [facility] CM Progress Note CM Note CM Note Notes: Today Giacomo spoke with Hermes on the phone several times. Hermes very stressed about her 's situation and how best to care for him. Provided supportive counseling and resource information. Giacomo also met with Pt. and his sister at bedside. Pt. is good with plan to d/c to [facility] today. [facility]'s Minerva came to assist with discharge of Pt. to [facility]. Giacomo updated Minerva on family situation. Suggested to Minerva and Hermes that Hermes get to know social welfare research worker at [facility] to develop a care plan. Minerva arranged for transport. D/c orders and meds sent via [facility] to [facility]. Pt. d/c'ed to [facility] today. Date Signed: 04/08/2017 04:31 PM Electronically Signed By:Mari Navarro LCSW Intervention Information Intervention Type:*Incorrect Registration Date of Service:04/03/2017 04:50 AM Patient Type:Inpatient Staff Member:MACY Murillo Kerry Hours: Discipline: Severity: Comment:
== END 2017-04-08 16:04 | disposition hospice, home (50) | DRG 436 ==
LOC: OBSVTOIN 11:34 → F1N 11:34
PROVIDERS: ADMIT Internal Medicine; ATTEND Internal Medicine
PROC: 0FH Hepatobiliary System and Pancreas, Insertion (ICD-10-PCS; principal; 2017-04-06 13:30)
DX: C22.1 Intrahepatic bile duct carcinoma (principal); C78.00 Secondary malignant neoplasm of unspecified lung; G89.3 Neoplasm related pain (acute) (chronic); M54.30 Sciatica, unspecified side; Z66 Do not resuscitate
CPT/HCPCS: A9585; C1769; C2625; J1170; J1200; J1610; J1650; J1956; J2060; J2250; J2704; J3010; Q9961; Q9967